=== PATIENT | female | born 1980 | race Two or more races ===

== ENCOUNTER 2021-08-06 18:36 | Emergency (ER) | payer MEDICAID ==
[~2021-08-06] VITALS: Ht 175.3 cm; Wt 63.5 kg
--- NOTE | 2021-08-06 18:43 | NUR ---
Attempted to traige pt, pt was not found in ER waiting room or outside ER.
[2021-08-06] MEDS ORDERED: SULF1TAB48 PO (21:35)
[2021-08-06 22:17] LABS: HEMATOCRIT 33.3 % (31.2-41.9); MEAN CORPUSCULAR HEMOGLOBIN 28.5 uug (24.7-32.8); MEAN CORPUSCULAR VOLUME 83.7 fL (75.5-95.3); PLATELET COUNT (AUTO) 200 K/uL (179-408)
[2021-08-06 22:39] LABS: BILIRUBIN,DIRECT 0.1 mg/dL (0.0-0.2); BILIRUBIN,TOTAL 0.5 mg/dL (0.2-1.0); CREATININE 0.9 mg/dL (0.6-1.3); POTASSIUM 3.6 mmol/L (3.5-5.1); TOTAL PROTEIN, SERUM 7.7 g/dL (6.4-8.2)
--- NOTE | 2021-08-06 23:30 | NUR ---
Patient discharged to home in stable condition. Written and verbal after care instructions given. Patient verbalizes understanding of instructions. Stressed follow up or return to ER for worsening s/s.
[2021-08-06 23:56] VITALS: BP 127/83
== END 2021-08-06 23:30 | disposition home or self-care (01) ==
LOC: ER 18:40
DX: L97.129 Non-pressure chronic ulcer of left thigh with unspecified severity (principal); L97.829 Non-pressure chronic ulcer of other part of left lower leg with unspecified severity
CPT/HCPCS: 36415; 83735; 85025; 87070; 87077; A4663